=== PATIENT | male | born 1940 | race Caucasian/White ===

== ENCOUNTER 2019-02-25 16:47 | Emergency (ER) | payer MEDICARE, OTHER ==
--- NOTE | 2019-02-25 17:15 | ER Document Report ---
ED Medical Screen (RME) - General Chief Complaint: Chest Pain > 30 Stated Complaint: CHEST PAIN Time Seen by Provider: 02/25/19 17:13 Mode of Arrival: Ambulatory Information source: Patient Notes: 78-year-old male presented to ED for complaint of left chest wall pain. He states he just started today. He states of a blood clot in his femoral vein 6 months ago. He states he was started on Eliquis and has about 2 weeks left. He states that the blood clot was dissolved on his last visit to the doctor. He is here visiting the area. Patient is alert oriented respirations regular and unla bored speaking in full sentences walks with even steady gait. I have greeted and performed a rapid initial assessment of this patient. A comprehensive ED assessment and evaluation of the patient, analysis of test results and completion of medical decision making process will be conducted by an additional ED providers. Dictation of this chart was performed using voice recognition software; therefore, there may be some unintended grammatical errors. TRAVEL OUTSIDE OF THE [place] IN LAST 30 DAYS: Yes Physical Exam - Vital signs Vitals: Temp Pulse Resp BP Pulse Ox 97.6 F 63 12 147/60 H 97 02/25/19 17:04 02/25/19 17:04 02/25/19 17:04 02/25/19 17:04 02/25/19 17:04 Course - Vital Signs Vital signs: Temp Pulse Resp BP Pulse Ox 97.6 F 63 12 147/60 H 97 02/25/19 17:04 02/25/19 17:04 02/25/19 17:04 02/25/19 17:04 02/25/19 17:04
[2019-02-25 17:41] LABS: ABSOLUTE EOSINOPHILS # (AUTO) 0.2 10^3/uL (0.0-0.6); ABSOLUTE LYMPHOCYTES (AUTO) 1.6 10^3/uL (0.5-4.7); ABSOLUTE MONOCYTES (AUTO) 0.6 10^3/uL (0.1-1.4); ABSOLUTE NEUT (AUTO) 3.4 10^3/uL (1.7-8.2); BASOPHILS % (AUTO) 0.6 % (0-2); EOSINOPHILS % (AUTO) 3.7 % (0-6); HEMATOCRIT 42.1 % (37.9-51.0); HEMOGLOBIN 14.3 g/dL (13.5-17.0); LYMPHOCYTES % (AUTO) 27.2 % (13-45); MEAN CORPUSCULAR HEMOGLOBIN 32.1 pg (27.0-33.4); MEAN CORPUSCULAR HGB CONC 34.1 g/dL (32.0-36.0); MEAN CORPUSCULAR VOLUME 94 fl (80-97); MONOCYTES % (AUTO) 10.3 % (3-13); PLATELET COUNT 176 10^3/uL (150-450); RED BLOOD COUNT 4.47 10^6/uL (4.35-5.55); SEGMENTED NEUTROPHILS % (AUTO) 58.2 % (42-78); TOTAL CELLS COUNTED % (AUTO) 100 %; WHITE BLOOD COUNT 5.9 10^3/uL (4.0-10.5)
[2019-02-25 17:42] LABS: BILIRUBIN,URINE NEGATIVE (NEGATIVE); GLUCOSE, URINE NEGATIVE (NEGATIVE); KETONES,URINE NEGATIVE (NEGATIVE); LEUKOCYTE ESTERASE,URINE NEGATIVE (NEGATIVE); NITRITE,URINE NEGATIVE (NEGATIVE); PROTEIN,URINE NEGATIVE (NEGATIVE); UROBILINOGEN,URINE NEGATIVE mg/dL (<2.0)
[2019-02-25 17:47] LABS: INTERNATIONAL RATION (INR) 1.04; PROTHROMBIN TIME 13.6 SEC (11.4-15.4)
[2019-02-25 17:48] LABS: PARTIAL THROMBOPLASTIN TIME 31.6 SEC (23.5-35.8)
[2019-02-25 17:50] LABS: COLOR,URINE STRAW; URINE SPECIFIC GRAVITY 1.016
[2019-02-25 17:51] LABS: APPEARANCE,URINE CLEAR
--- NOTE | 2019-02-25 17:52 | RADIOLOGY REPORT (SQ) ---
EXAM DESCRIPTION: CHEST 2 VIEWS COMPLETED DATE/TIME: 02/25/2019 5:33 pm REASON FOR STUDY: chest pain hx of blood clot 6 months ago COMPARISON: None. EXAM PARAMETERS: NUMBER OF VIEWS: two views TECHNIQUE: Digital Frontal and Lateral radiographic views of the chest acquired. RADIATION DOSE: NA LIMITATIONS: none FINDINGS: LUNGS AND PLEURA: No consolidation, masses or pneumothorax. No pleural effusion. MEDIASTINUM AND HILAR STRUCTURES: No masses or contour abnormalities. HEART AND VASCULAR STRUCTURES: Heart normal size. No evidence for failure. BONES: No acute findings. HARDWARE: None in the chest. OTHER: No other significant finding. IMPRESSION: NO ACUTE RADIOGRAPHIC FINDING IN THE CHEST. TECHNICAL DOCUMENTATION: JOB ID: [id number] [id number] 2010 [employer]- All Rights Reserved Reading location - IP/workstation name: [email or web address]
[2019-02-25 18:05] LABS: ALANINE AMINOTRANSFERASE 28 U/L (21-72); ALBUMIN 4.3 g/dL (3.5-5.0); ALKALINE PHOSPHATASE 73 U/L (38-126); ANION GAP 7 (5-19); ASPARTATE AMINO TRANSFERASE 31 U/L (17-59); BILIRUBIN,DIRECT 0.2 mg/dL (0.0-0.4); BILIRUBIN,TOTAL 0.6 mg/dL (0.2-1.3); BLOOD UREA NITROGEN 24 mg/dL (7-20); CALCIUM 9.6 mg/dL (8.4-10.2); CARBON DIOXIDE 33 mmol/L (22-30); CHLORIDE 100 mmol/L (98-107); CREATINE KINASE 78 U/L (55-170); GLUCOSE 106 mg/dL (75-110); LIPASE 152.2 U/L (23-300); POTASSIUM 4.3 mmol/L (3.6-5.0); SODIUM 139.7 mmol/L (137-145); TOTAL PROTEIN 7.2 g/dL (6.3-8.2)
[2019-02-25 18:18] LABS: TROPONIN I < 0.012 ng/mL
--- NOTE | 2019-02-25 19:26 | EKG REPORT ---
SEVERITY:- NORMAL ECG - SINUS RHYTHM : Confirmed by: Staci Swenson MD 25-Feb-2019 19:25:57
--- NOTE | 2019-02-25 21:34 | ER Document Report ---
ED Cardiac - General Chief Complaint: Chest Pain > 30 Stated Complaint: CHEST PAIN Time Seen by Provider: 02/25/19 17:13 Mode of Arrival: Ambulatory Notes: Patient is an 78-year-old male that comes emergency department for chief complaint of left-sided chest pain. Symptoms started this afternoon at the store, he states it feels like a sharp "pulse" on the left side of the chest, he states that last a couple of seconds and then resolved, he felt this several times repeatedly, went to urgent care, they sent him here. He denies radiation of the pain. He denies nausea, shortness of breath, dizziness, passing out. He denies injury. Patient is visiting here from [place]. He has a history of a right sided femoral DVT, he is on Eliquis, he states his most recent ultrasound said the clot was not visualized. He has a history of hyperlipidemia, glaucoma, GERD, DVT. He denies any cardiac history, had a negative stress test 2 years ago. He is here with his family. TRAVEL OUTSIDE OF THE [place] IN LAST 30 DAYS: Yes - Related Data Allergies/Adverse Reactions: No Known Allergies Allergy (Unverified 02/25/19 23:19) Past Medical History - General Information source: Patient - Social History Smoking Status: Never Smoker Frequency of alcohol use: None Drug Abuse: None Lives with: Family Family History: Reviewed & Not Pertinent Patient has suicidal ideation: No Patient has homicidal ideation: No - Past Medical History Cardiac Medical History: Reports: Hx DVT, Hx Hypercholesterolemia Renal/ Medical History: Denies: Hx Peritoneal Dialysis - Immunizations Immunizations up to date: Yes Hx Diphtheria, Pertussis, Tetanus Vaccination: Yes Review of Systems - Review of Systems Constitutional: No symptoms reported EENT: No symptoms reported Cardiovascular: See HPI Respiratory: No symptoms reported Gastrointestinal: No symptoms reported Genitourinary: No symptoms reported Male Genitourinary: No symptoms reported Musculoskeletal: No symptoms reported Skin: No symptoms reported Hematologic/Lymphatic: No symptoms reported Neurological/Psychological: No symptoms reported Physical Exam - Vital signs Vitals: Temp Pulse Resp BP Pulse Ox 97.6 F 63 12 147/60 H 97 02/25/19 17:04 02/25/19 17:04 02/25/19 17:04 02/25/19 17:04 02/25/19 17:04 - Notes Notes: GENERAL: Alert, interacts well. No acute distress. HEAD: Normocephalic, atraumatic. EYES: Pupils equal, round, and reactive to light. Extraocular movements intact. ENT: Oral mucosa moist, tongue midline. Oropharynx unremarkable. Airway patent. NECK: Full range of motion. Supple. Trachea midline. LUNGS: Clear to auscultation bilaterally, no wheezes, rales, or rhonchi. No respiratory distress. HEART: Regular rate and rhythm. No murmur ABDOMEN: Soft, non-tender. Non-distended. Bowel sounds present in all 4 quadrants. GENITOURINARY: Deferred EXTREMITIES: Moves all 4 extremities spontaneously. No edema, normal radial and dorsalis pedis pulses bilaterally. No cyanosis. BACK: no cervical, thoracic, lumbar midline tenderness. No saddle anesthesia, no rmal distal neurovascular exam. Moves all extremities in full range of motion. NEUROLOGICAL: Alert and oriented x3. Normal speech. Cranial nerves II through XII grossly intact. PSYCH: Normal affect, normal mood. SKIN: Warm, dry, normal turgor. No rashes or lesions noted. Course - Re-evaluation Re-evalutation: Patient is a very youthful and well-appearing for his age. He has no current symptoms on my evaluation. He describes his symptoms as occasional pulsing or sharp pain that resolves after a few seconds. He has no lower extremity swelling or lower extremity pain. He is still on Eliquis. EKG is nonischemic, chest x-ray unremarkable, CBC, chemistry unremarkable. Troponin is negative. Patient has already gone for CTA when I saw the patient. CTA results are negative for pulmonary embolus or concerning abnormality. Based on his age, risk factors, EKG, troponin, and reported symptoms patient's heart score is actually only 3. Troponin was cycled and again negative. Patient reevaluated and he still has no current symptoms. He is requesting to go home. Family also requesting to go home. I did discuss admission for chest pain rule out because of his age, however this was declined. They state that they will follow-up with his provider and if he develops return or worsening symptoms they will return to the emergency department. Patient did state that his symptoms started after lunch where he was eating pizza, he famotidine as result and given a prescription for home. Follow-up and return precautions discussed in detail. Patient asymptomatic and stable at time of discharge. - Vital Signs Vital signs: Temp Pulse Resp BP Pulse Ox 97.6 F 63 12 130/61 H 97 02/25/19 17:04 02/25/19 17:04 02/25/19 23:02 02/25/19 23:02 02/25/19 23:02 - Laboratory Result Diagrams: 02/25/19 17:20 02/25/19 17:20 Laboratory results interpreted by me: 02/25/19 02/25/19 17:20 17:20 Carbon Dioxide 33 H BUN 24 H Urine Blood SMALL H Urine Ascorbic Acid 20 H Discharge - Discharge Clinical Impression: Atypical chest pain Condition: Stable Disposition: HOME, SELF-CARE Additional Instructions: Your work-up including EKG, troponins, imaging are all reassuring. The exact cause of your pain is uncertain. I do recommend you take the famotidine as prescribed for the next several days along with your current medications. Call your provider tomorrow to set up close very close follow-up. Return for any concerning or worsening symptoms including returned/increased pain, vomiting, sweating, difficulty breathing, passing out, or any other concerning or worsening symptoms. Prescriptions: Famotidine [Pepcid 20 mg Tablet] 20 mg PO BID #12 tablet
--- NOTE | 2019-02-25 22:07 | RADIOLOGY REPORT (SQ) ---
EXAM DESCRIPTION: CT CHEST ANGIOGRAPHY WITHOUT THEN WITH IV CONTRAST COMPLETED DATE/TME: 02/25/2019 17:14 HISTORY: chest pain hx of blood clot 6 months ago COMPARISON: None Available TECHNIQUE: Contiguous axial images of the chest were obtained from the thoracic inlet to the level of the upper abdomen after the administration of intravenous contrast followed by reconstruction images. Volume rendering images were performed. This exam was performed according to our departmental dose-optimization program, which includes automated exposure control, adjustment of the mA and/or kV according to patient size and/or use of iterative reconstruction technique. FINDINGS: The aorta is of normal contour and tapering. There is atherosclerosis. There is no discrete filling defect within the pulmonary arterial system to suggest pulmonary emboli. There is no pericardial or pleural fluid collection. Linear opacities within the lungs may represent scar versus subsegmental atelectasis. There is a calcified pulmonary nodule of the left lower lung, splenic and hepatic calcification, and calcified hilar and mediastinal lymph nodes compatible with prior granulomatous disease. There is no parenchymal consolidation or pneumothorax. There is a partially visualized 7 cm left renal cyst. IMPRESSION: No acute intrathoracic abnormality. Linear opacities within the lungs may represent scar versus subsegmental atelectasis.
[2019-02-25] MEDS ORDERED: FAMOTIDINE 20 MG TABLET PO ONE (23:11)
[2019-02-25 23:15] VITALS: BP 130/61
== END 2019-02-25 23:28 | disposition home or self-care (01) ==
LOC: ER 16:47
DX: R07.89 Other chest pain (principal); Z86.718 Personal history of other venous thrombosis and embolism; Z79.02 Long term (current) use of antithrombotics/antiplatelets
CPT/HCPCS: 93005; 99285; 36415; 82553; 82550; 83690; 85025; 85610; 85730; 80053; 81001; 84484; 71046; 71275; 93010; A9270